=== PATIENT | female | born 1960 | race Caucasian/White ===

== ENCOUNTER 2023-05-21 01:53 | Inpatient (IN) | payer OTHER, MEDICAID ==
[2023-05-21] MEDS ORDERED: Ondansetron PF 4 MG/2 ML Vial IVP PRN (05:05)
[2023-05-21] MEDS ORDERED: Ondansetron ODT 4 MG TAB PO PRN (05:05)
[2023-05-21] MEDS ORDERED: Acetaminophen 650 MG Suppository PR PRN (05:05)
[2023-05-21] MEDS ORDERED: Acetaminophen 325 MG TAB PO PRN (05:05)
[2023-05-21] MEDS: Morphine 4 MG/ML VIAL SLOW IVP PRN ×2 (05:46→14:47)
[2023-05-21 06:17] LABS: #Eosinphils 0.1 thou/uL (0.0-0.7); #Neutrophils 4.2 thou/uL (1.40-6.50); %Basophils 0.4 % (0.0-1.0); %Eosinophils 1.1 % (0.0-10.0); %Lymphocytes 37.1 % (21.0-51.0); %Monocytes 11.6 % (0.0-10.0); %Neutrophils 49.7 % (42.0-75.0); Hematocrit 37.1 % (36.0-47.0); Hemoglobin 12.1 g/dL (12.0-16.0); Mean Corpuscular HGB CONC 32.6 g/dL (32.0-36.0); Mean Corpuscular Hemoglobin 30.5 pg (27.0-31.0); Mean Corpuscular Volume 93.5 fl (78.0-98.0); Mean Platelet Volume 10.2 fL (7.4-10.4); Platelet Count 222 10x3/uL (130-400); RBC Distribution Width 12.3 % (11.5-14.5); Red Blood Cell (RBC) Count 3.97 mill/uL (4.20-5.40); White Blood Cell (WBC) Count 8.4 10x3/uL (4.8-10.8)
[2023-05-21] MEDS ORDERED: Glucagon 1 MG/ML KIT IM PRN (06:20)
[2023-05-21] MEDS ORDERED: Dextrose 50% Abboject 50 ML SYRINGE SLOW IVP PRN (06:20)
[2023-05-21] MEDS ORDERED: Dextrose 5% in Water 1,000 ML IV PRN (06:20)
[2023-05-21] MEDS ORDERED: HumaLOG 300 UNITS/3 ML VIAL SC PRN ×2 (06:20)
[2023-05-21 06:36] VITALS: BMI 33.2
[2023-05-21 06:43] LABS: Troponin I Less than 0.010 ng/mL (< 0.028)
[2023-05-21 06:44] LABS: Anion Gap 15 mmol/L (10-20); BUN (Urea Nitrogen) 26 mg/dL (9.8-20.1); Calc. Creatinine Clearance 97 mL/min (70-130); Calcium 8.7 mg/dL (7.8-10.44); Carbon Dioxide 19 mmol/L (23-31); Chloride 104 mmol/L (98-107); Estimated GFR 66; Glucose 328 mg/dL (80-115); Potassium 3.7 mmol/L (3.5-5.1); Sodium 134 mmol/L (136-145)
[2023-05-21] MEDS ORDERED: Non-Formulary Item 1 EACH (Sotalol Hcl [Sotalol] 120 MG Tablet) PO SCH (09:00)
[2023-05-21] MEDS: Sotalol HCl 80 MG TAB PO SCH ×2 (09:04→20:34)
[2023-05-21 10:41] LABS: Magnesium 1.8 mg/dL (1.6-2.6)
[2023-05-21] MEDS ORDERED: Magnesium 2 GM/50 ML(in water) 2 GM in Premix Bag 1 BAG IVPB SCH (10:45)
[2023-05-21] MEDS ORDERED: Apixaban 5 MG TAB PO SCH ×2 (10:45→11:00)
[2023-05-21] MEDS ORDERED: Amlodipine 5 MG TAB PO SCH (11:00)
[2023-05-21] MEDS ORDERED: Doxycycline 100 MG CAP PO SCH ×2 (11:00)
[2023-05-21] MEDS ORDERED: Electrolyte Replacement Protocol 1 EACH FS SCH (11:00)
[2023-05-21] MEDS: Doxycycline 100 MG CAP PO SCH ×2 (11:41→20:33)
[2023-05-21] MEDS: HumaLOG 300 UNITS/3 ML VIAL SC PRN ×2 (11:42→18:56)
[2023-05-21] MEDS: Polyethylene Glycol OPTH DROP 15 ML BOT EA EYE SCH ×3 (11:47→20:30)
[2023-05-21] MEDS ORDERED: [UNRECOGNIZED DRUG - OTHER] OP SCH (13:00)
[2023-05-21] MEDS ORDERED: PEG OP SCH (13:00)
[2023-05-21] MEDS ORDERED: PROPYLENE GLYCOL OP SCH (13:00)
[2023-05-21] MEDS: Apixaban 5 MG TAB PO SCH (20:28)
[2023-05-21] MEDS ORDERED: Insulin Glargine 30 UNITS/0.3 ML VIAL SC SCH (21:00)
[2023-05-21] MEDS ORDERED: Non-Formulary Item 1 EACH (Omeprazole [Omeprazole] 20 MG Tablet.Dr) PO SCH (21:00)
[2023-05-21] MEDS: prednisoLONE 1% Ophth Susp 5 ml Bottle EA EYE SCH (21:52)
[2023-05-22] MEDS: Insulin Glargine 30 UNITS/0.3 ML VIAL SC SCH ×2 (08:11→21:09)
[2023-05-22] MEDS: Sotalol HCl 80 MG TAB PO SCH ×2 (08:12→20:37)
[2023-05-22] MEDS: Polyethylene Glycol OPTH DROP 15 ML BOT EA EYE SCH ×3 (08:13→20:40)
[2023-05-22] MEDS: Apixaban 5 MG TAB PO SCH ×2 (08:13→20:37)
[2023-05-22] MEDS: prednisoLONE 1% Ophth Susp 5 ml Bottle EA EYE SCH ×3 (08:13→20:41)
[2023-05-22] MEDS: Lisinopril 20 MG TAB PO SCH (08:13)
[2023-05-22] MEDS: Amlodipine 5 MG TAB PO SCH (08:13)
[2023-05-22] MEDS: Atorvastatin Calcium 20 MG TAB PO SCH (08:13)
[2023-05-22] MEDS: Aspirin 81 mg Enteric Coated Tablet PO SCH (08:13)
[2023-05-22] MEDS: Nitroglycerin 0.4 MG TAB (25 Tab Bottle) SL PRN ×2 (08:23→08:28)
[2023-05-22] MEDS: HumaLOG 300 UNITS/3 ML VIAL SC PRN ×3 (08:49→18:23)
[2023-05-22] MEDS: Doxycycline 100 MG CAP PO SCH ×2 (10:20→23:04)
[2023-05-22] MEDS ORDERED: Morphine 2 MG/ML VIAL SLOW IVP PRN (10:31)
[2023-05-22 15:45] LABS: Troponin I Less than 0.010 ng/mL (< 0.028)
[2023-05-23] MEDS: Insulin Glargine 30 UNITS/0.3 ML VIAL SC SCH ×2 (09:35→09:40)
[2023-05-23] MEDS: prednisoLONE 1% Ophth Susp 5 ml Bottle EA EYE SCH ×3 (09:35→16:38)
[2023-05-23] MEDS: Polyethylene Glycol OPTH DROP 15 ML BOT EA EYE SCH (09:35)
[2023-05-23] MEDS: Amlodipine 5 MG TAB PO SCH (09:36)
[2023-05-23] MEDS: Aspirin 81 mg Enteric Coated Tablet PO SCH (09:36)
[2023-05-23] MEDS: Lisinopril 20 MG TAB PO SCH (09:36)
[2023-05-23] MEDS: Apixaban 5 MG TAB PO SCH (09:36)
[2023-05-23] MEDS: Atorvastatin Calcium 20 MG TAB PO SCH (09:36)
[2023-05-23] MEDS: Sotalol HCl 80 MG TAB PO SCH (09:36)
[2023-05-23] MEDS: Doxycycline 100 MG CAP PO SCH (10:22)
[2023-05-23] MEDS: HumaLOG 300 UNITS/3 ML VIAL SC PRN (14:13)
[2023-05-23 19:32] VITALS: BP 142/65; TEMP 98
[2023-05-23] MEDS ORDERED: Insulin Glargine 30 UNITS/0.3 ML VIAL SC SCH (21:00)
== END 2023-05-23 19:35 | disposition home or self-care (01) | DRG 880 ==
LOC: 2SW 04:51 → OBSVTOIN 05-23 12:43
PROVIDERS: ADMIT Student in an Organized Health Care Education/Training Program; ATTEND Internal Medicine
DX: F41.9 Anxiety disorder, unspecified (principal); I50.32 Chronic diastolic (congestive) heart failure; I48.0 Paroxysmal atrial fibrillation; E11.9 Type 2 diabetes mellitus without complications; E83.42 Hypomagnesemia; K21.9 Gastro-esophageal reflux disease without esophagitis; I25.10 Atherosclerotic heart disease of native coronary artery without angina pectoris; I11.0 Hypertensive heart disease with heart failure; E78.5 Hyperlipidemia, unspecified; Z91.013 Allergy to seafood; Z88.0 Allergy status to penicillin; Z88.1 Allergy status to other antibiotic agents; Z79.82 Long term (current) use of aspirin; Z79.899 Other long term (current) drug therapy; Z79.4 Long term (current) use of insulin; Z83.3 Family history of diabetes mellitus; Z98.49 Cataract extraction status, unspecified eye; Z90.49 Acquired absence of other specified parts of digestive tract; Z79.01 Long term (current) use of anticoagulants; E66.9 Obesity, unspecified; Z68.33 Body mass index [BMI] 33.0-33.9, adult
CPT/HCPCS: 36415; 36416; 80048; 83735; 84484; 85025; 96374; 96375; 96376; G0378; G0379; J1815; J2270; J2272; J2405; J3475

== ENCOUNTER 2023-06-09 11:35 | Emergency (ER) | payer OTHER, MEDICAID ==
[2023-06-09 12:10] LABS: #Eosinphils 0.1 thou/uL (0.0-0.7); #Monocytes 1.2 thou/uL (0.11-0.59); #Neutrophils 8.3 thou/uL (1.40-6.50); %Basophils 0.3 % (0.0-1.0); %Eosinophils 0.7 % (0.0-10.0); %Lymphocytes 20.6 % (21.0-51.0); %Monocytes 9.8 % (0.0-10.0); %Neutrophils 68.4 % (42.0-75.0); Hematocrit 38.5 % (36.0-47.0); Mean Corpuscular HGB CONC 33.8 g/dL (32.0-36.0); Mean Corpuscular Hemoglobin 30.4 pg (27.0-31.0); Mean Platelet Volume 10.1 fL (7.4-10.4); Platelet Count 289 10x3/uL (130-400); RBC Distribution Width 12.4 % (11.5-14.5); Red Blood Cell (RBC) Count 4.28 mill/uL (4.20-5.40); White Blood Cell (WBC) Count 12.2 10x3/uL (4.8-10.8)
[2023-06-09 12:35] LABS: ALT (SGPT) 15 U/L (8-55); AST (SGOT) 16 U/L (5-34); Albumin 3.9 g/dL (3.4-4.8); Alkaline Phosphatase 120 U/L (40-110); Anion Gap 19 mmol/L (10-20); BUN (Urea Nitrogen) 20 mg/dL (9.8-20.1); Bilirubin, Total 0.6 mg/dL (0.2-1.2); Calc. Creatinine Clearance 0 mL/min (70-130); Carbon Dioxide 24 mmol/L (23-31); Chloride 99 mmol/L (98-107); Estimated GFR 61; Glucose 179 mg/dL (80-115); Potassium 3.5 mmol/L (3.5-5.1); Protein, Total 6.9 g/dL (5.8-8.1); Sodium 138 mmol/L (136-145)
[2023-06-09] MEDS ORDERED: HYDROcodone/Acetaminophen 5/325 mg Tablet ONE ×2 (13:06→13:11)
== END 2023-06-09 13:28 | disposition home or self-care (01) ==
LOC: ERS 11:35
DX: L03.032 Cellulitis of left toe (principal); I10 Essential (primary) hypertension; E11.9 Type 2 diabetes mellitus without complications; K21.9 Gastro-esophageal reflux disease without esophagitis
CPT/HCPCS: 36415; 80053; 85025; 85652; 86140

== ENCOUNTER 2023-06-13 17:26 | Emergency (ER) | payer OTHER, MEDICAID ==
[2023-06-13] MEDS ORDERED: Ondansetron PF 4 MG/2 ML Vial ONE (18:06)
[2023-06-13 19:00] LABS: #Monocytes 0.7 thou/uL (0.11-0.59); #Neutrophils 8.1 thou/uL (1.40-6.50); %Basophils 0.1 % (0.0-1.0); %Lymphocytes 9.2 % (21.0-51.0); %Monocytes 6.8 % (0.0-10.0); %Neutrophils 83.6 % (42.0-75.0); Hematocrit 37.3 % (36.0-47.0); Hemoglobin 12.7 g/dL (12.0-16.0); Mean Corpuscular Hemoglobin 30.1 pg (27.0-31.0); Mean Corpuscular Volume 88.4 fl (78.0-98.0); Mean Platelet Volume 10.1 fL (7.4-10.4); Platelet Count 247 10x3/uL (130-400); RBC Distribution Width 11.9 % (11.5-14.5); Red Blood Cell (RBC) Count 4.22 mill/uL (4.20-5.40); White Blood Cell (WBC) Count 9.7 10x3/uL (4.8-10.8)
[2023-06-13 19:27] LABS: ALT (SGPT) 12 U/L (8-55); AST (SGOT) 13 U/L (5-34); Albumin 3.4 g/dL (3.4-4.8); Alkaline Phosphatase 103 U/L (40-110); Anion Gap 18 mmol/L (10-20); BUN (Urea Nitrogen) 22 mg/dL (9.8-20.1); Bilirubin, Total 0.9 mg/dL (0.2-1.2); Calc. Creatinine Clearance 0 mL/min (70-130); Carbon Dioxide 22 mmol/L (23-31); Chloride 96 mmol/L (98-107); Estimated GFR 53; Globulin 3.3 g/dL (2.4-3.5); Potassium 3.3 mmol/L (3.5-5.1); Protein, Total 6.7 g/dL (5.8-8.1); Sodium 133 mmol/L (136-145)
[2023-06-13 19:27] LABS: CRP (Inflammatory) 15.83 mg/dL (= or < 0.5); Magnesium 1.5 mg/dL (1.6-2.6)
[2023-06-13 19:43] LABS: SARS-CoV-2 NAA Rapid Test Not Detected (NotDetected)
[2023-06-13 19:45] LABS: Glucose 404 mg/dL (80-115)
[2023-06-13] MEDS ORDERED: Acetaminophen 500 MG TAB ONE (19:46)
[2023-06-13] MEDS ORDERED: VANCOMYCIN 2 GRAM/500 ML BAG 2 GM in Premix Bag 1 BAG IVPB SCH (20:00)
[2023-06-13] MEDS ORDERED: Potassium Chloride 20 MEQ/100 ML PREMIX BAG ONE (20:07)
[2023-06-13] MEDS ORDERED: Potassium Chloride 20 MEQ TAB ONE ×2 (20:07→20:08)
== END 2023-06-13 21:27 | disposition short-term general hospital (02) ==
LOC: ERS 17:26
DX: M86.172 Other acute osteomyelitis, left ankle and foot (principal); E87.6 Hypokalemia; E83.42 Hypomagnesemia; E11.65 Type 2 diabetes mellitus with hyperglycemia; K21.9 Gastro-esophageal reflux disease without esophagitis; I10 Essential (primary) hypertension; Z79.4 Long term (current) use of insulin; Z79.899 Other long term (current) drug therapy; Z79.01 Long term (current) use of anticoagulants; Z20.822 Contact with and (suspected) exposure to COVID-19
CPT/HCPCS: 73630; 80053; 83605; 83735; 85025; 85652; 86140; 87040; 87077; 87149 ×2; 87186; J3370; U0002; 36415; 96361; 96374; J2405; J3480

== ENCOUNTER 2024-03-27 05:33 | Emergency (ER) | payer OTHER, MEDICAID ==
[2024-03-27] MEDS ORDERED: Pantoprazole 40 MG VIAL ONE (06:09)
[2024-03-27] MEDS ORDERED: Ondansetron PF 4 MG/2 ML Vial ONE ×2 (06:09→07:40)
[2024-03-27 06:40] LABS: #Basophils 0.04 10x3/uL (0.0-0.2); %Basophils 0.5 % (0.0-1.0); %Eosinophils 1.7 % (0.0-10.0); %Lymphocytes 39.1 % (21.0-51.0); %Neutrophils 49.3 % (42.0-75.0); Hematocrit 38.7 % (36.0-47.0); Hemoglobin 13.5 g/dL (12.0-16.0); Mean Corpuscular HGB CONC 34.9 g/dL (32.0-36.0); Mean Corpuscular Hemoglobin 30.8 pg (27.0-31.0); Mean Corpuscular Volume 88.4 fL (78.0-98.0); Mean Platelet Volume 10.1 fL (7.4-10.4); Platelet Count 277 10x3/uL (130-400); RBC Distribution Width 12.6 % (11.5-14.5); Red Blood Cell (RBC) Count 4.38 mill/uL (4.20-5.40)
[2024-03-27 07:20] LABS: Troponin I Less than 0.010 ng/mL (< 0.028)
[2024-03-27 07:22] LABS: ALT (SGPT) 37 U/L (8-55); AST (SGOT) 26 U/L (5-34); Albumin 3.6 g/dL (3.4-4.8); Alkaline Phosphatase 142 U/L (40-110); Anion Gap 15 mmol/L (10-20); BUN (Urea Nitrogen) 30 mg/dL (9.8-20.1); Bilirubin, Total 0.7 mg/dL (0.2-1.2); Calc. Creatinine Clearance 0 mL/min (70-130); Carbon Dioxide 21 mmol/L (23-31); Chloride 106 mmol/L (98-107); Estimated GFR 68; Globulin 3.5 g/dL (2.4-3.5); Glucose 210 mg/dL (80-115); Lipase 13 U/L (8-78); Potassium 3.4 mmol/L (3.5-5.1); Protein, Total 7.1 g/dL (5.8-8.1); Sodium 139 mmol/L (136-145)
[2024-03-27 08:50] LABS: Bilirubin Negative (Negative); Blood, Urine Negative (Negative); CAUTI Indications for Culture Dysuria,urgency,freq; Clarity Turbid (Clear); Glucose, Urine (Dipstick) 300 mg/dL (Negative); Ketone, Urine Negative (Negative); Leukocyte 250 Leu/uL (Negative); Nitrite Negative (Negative); Protein, Urine (Dipstick) 50 mg/dL (Neg-Trace); RBC/HPF 0-3 HPF (0-3); Specific Gravity, Urine 1.014 (1.002-1.036); Triple Phosphate Crystal 1+ HPF (None Seen); Urobilinogen Normal mg/dL (Less than 2); pH, Urine 8.5 (5.0-9.0)
[2024-03-27] MEDS ORDERED: Iopamidol-370 76% 500 ML MDV (1 ML CHARGE) ONE (08:56)
[2024-03-27 08:59] LABS: Bacteria/HPF 4+ HPF (None Seen)
[2024-03-27 09:00] LABS: Urine Culture Reflex No No
[2024-03-27] MEDS ORDERED: Promethazine HCl 12.5 MG, Admixture Fee 1 EACH in Sodium Chloride 0.9% 50 ML IVPB SCH (09:00)
== END 2024-03-27 11:34 | disposition home or self-care (01) ==
LOC: ERS 05:33
DX: K63.89 Other specified diseases of intestine (principal); N12 Tubulo-interstitial nephritis, not specified as acute or chronic; I10 Essential (primary) hypertension; Z79.899 Other long term (current) drug therapy
CPT/HCPCS: 71045; 74177; 80053; 81001; 83690; 84484; 85025; 87077; 87086; 93005; 96374; 96375; 96376; 99285; C9113; J2405; J2550; Q9967; 36415; 87186

== ENCOUNTER 2024-04-01 13:15 | Inpatient (IN) | payer OTHER, MEDICAID ==
[2024-04-01 14:23] LABS: #Basophils 0.04 10x3/uL (0.0-0.2); %Basophils 0.3 % (0.0-1.0); %Eosinophils 0.7 % (0.0-10.0); %Lymphocytes 8.3 % (21.0-51.0); %Monocytes 11.3 % (0.0-10.0); %Neutrophils 78.8 % (42.0-75.0); Hematocrit 38.1 % (36.0-47.0); Hemoglobin 13.1 g/dL (12.0-16.0); Mean Corpuscular HGB CONC 34.4 g/dL (32.0-36.0); Mean Corpuscular Hemoglobin 30.3 pg (27.0-31.0); Mean Corpuscular Volume 88.2 fL (78.0-98.0); Mean Platelet Volume 10.3 fL (7.4-10.4); Platelet Count 273 10x3/uL (130-400); Red Blood Cell (RBC) Count 4.32 mill/uL (4.20-5.40)
[2024-04-01 14:41] LABS: Troponin I Less than 0.010 ng/mL (< 0.028)
[2024-04-01 14:42] LABS: ALT (SGPT) 26 U/L (8-55); AST (SGOT) 18 U/L (5-34); Albumin 3.6 g/dL (3.4-4.8); Alkaline Phosphatase 133 U/L (40-110); Anion Gap 15 mmol/L (10-20); BUN (Urea Nitrogen) 25 mg/dL (9.8-20.1); Bilirubin, Total 0.9 mg/dL (0.2-1.2); Calc. Creatinine Clearance 0 mL/min (70-130); Calcium 8.8 mg/dL (7.8-10.44); Carbon Dioxide 22 mmol/L (23-31); Chloride 108 mmol/L (98-107); Estimated GFR 52; Globulin 3.1 g/dL (2.4-3.5); Glucose 197 mg/dL (80-115); Lipase 23 U/L (8-78); Potassium 3.9 mmol/L (3.5-5.1); Protein, Total 6.7 g/dL (5.8-8.1); Sodium 141 mmol/L (136-145)
[2024-04-01] MEDS ORDERED: Metoclopramide HCl 10 MG (2 mL) VIAL ONE (14:48)
[2024-04-01] MEDS ORDERED: diphenhydrAMINE 50 MG/ML VIAL ONE (14:48)
[2024-04-01] MEDS ORDERED: Diazepam 10 MG/2 ML SYRINGE ONE (14:48)
[2024-04-01] MEDS ORDERED: Ondansetron PF 4 MG/2 ML Vial IVP PRN (16:25)
[2024-04-01] MEDS ORDERED: Acetaminophen 650 MG Suppository PR PRN (16:25)
[2024-04-01] MEDS ORDERED: Ondansetron ODT 4 MG TAB PO PRN (16:25)
[2024-04-01] MEDS ORDERED: Dextrose 50% Abboject 50 ML SYRINGE SLOW IVP PRN (16:29)
[2024-04-01] MEDS ORDERED: Dextrose 5% in Water 1,000 ML IV PRN (16:29)
[2024-04-01] MEDS ORDERED: Insulin Regular, Human 100 UNIT/ML 10 ML VIAL SC PRN (16:29)
[2024-04-01] MEDS ORDERED: Glucagon 1 MG/ML KIT IM PRN (16:29)
[2024-04-01 17:33] VITALS: BMI 32.8
[2024-04-01 17:37] LABS: Hemoglobin A1c 8.4 % (4.0-6.0)
[2024-04-01 19:19] LABS: Troponin I Less than 0.010 ng/mL (< 0.028)
[2024-04-01] MEDS: Famotidine 20 MG TAB PO SCH (21:02)
[2024-04-01] MEDS: Famotidine/PF 20 mg/2ml Vial SLOW IVP SCH (21:07)
[2024-04-01 22:50] LABS: Troponin I Less than 0.010 ng/mL (< 0.028)
[2024-04-02 06:04] LABS: #Basophils 0.03 10x3/uL (0.0-0.2); %Basophils 0.5 % (0.0-1.0); %Lymphocytes 41.5 % (21.0-51.0); %Neutrophils 45.8 % (42.0-75.0); Hematocrit 35.8 % (36.0-47.0); Hemoglobin 12.5 g/dL (12.0-16.0); Mean Corpuscular HGB CONC 34.9 g/dL (32.0-36.0); Mean Corpuscular Hemoglobin 31.2 pg (27.0-31.0); Mean Corpuscular Volume 89.3 fL (78.0-98.0); Mean Platelet Volume 10.1 fL (7.4-10.4); Platelet Count 230 10x3/uL (130-400); Red Blood Cell (RBC) Count 4.01 mill/uL (4.20-5.40)
[2024-04-02 06:17] LABS: Anion Gap 11 mmol/L (10-20); Calc. Creatinine Clearance 118 mL/min (70-130); Calcium 8.5 mg/dL (7.8-10.44); Carbon Dioxide 22 mmol/L (23-31); Chloride 111 mmol/L (98-107); Estimated GFR 85; Glucose 134 mg/dL (80-115); Potassium 3.4 mmol/L (3.5-5.1); Sodium 141 mmol/L (136-145)
[2024-04-02 06:30] LABS: BUN (Urea Nitrogen) 21 mg/dL (9.8-20.1)
[2024-04-02] MEDS: Potassium Chloride 20 MEQ TAB PO SCH (08:52)
[2024-04-02] MEDS: Pantoprazole DR 40 MG TAB PO SCH (08:52)
[2024-04-02] MEDS: Apixaban 5 MG TAB PO SCH (08:52)
[2024-04-02] MEDS: Amlodipine 5 MG TAB PO SCH (08:52)
[2024-04-02] MEDS: Isosorbide Mononitrate 30 MG ER.TAB PO SCH (08:52)
[2024-04-02] MEDS: Lisinopril 20 MG TAB PO SCH (08:53)
[2024-04-02] MEDS: Atorvastatin Calcium 20 MG TAB PO SCH (08:53)
[2024-04-02] MEDS: Insulin Glargine 30 UNITS/0.3 ML VIAL SC SCH (08:53)
[2024-04-02] MEDS: SYSTANE 0.3-0.4% EYE DROPS (30 ML) EA EYE SCH (09:11)
[2024-04-02] MEDS: Sotalol HCl 80 MG TAB PO SCH (12:03)
[2024-04-02] MEDS: Nitroglycerin 0.4 MG TAB (25 Tab Bottle) SL PRN (12:03)
[2024-04-02] MEDS: prednisoLONE 1% Ophth Susp 5 ml Bottle L EYE SCH (12:44)
[2024-04-03 06:14] LABS: #Basophils 0.03 10x3/uL (0.0-0.2); %Basophils 0.5 % (0.0-1.0); %Eosinophils 2.4 % (0.0-10.0); %Monocytes 8.7 % (0.0-10.0); %Neutrophils 49.1 % (42.0-75.0); Hematocrit 36.7 % (36.0-47.0); Hemoglobin 12.6 g/dL (12.0-16.0); Mean Corpuscular HGB CONC 34.3 g/dL (32.0-36.0); Mean Corpuscular Hemoglobin 30.9 pg (27.0-31.0); Mean Platelet Volume 10.1 fL (7.4-10.4); Platelet Count 241 10x3/uL (130-400); RBC Distribution Width 12.8 % (11.5-14.5); Red Blood Cell (RBC) Count 4.08 mill/uL (4.20-5.40)
[2024-04-03 06:31] LABS: Anion Gap 14 mmol/L (10-20); BUN (Urea Nitrogen) 20 mg/dL (9.8-20.1); Calc. Creatinine Clearance 107 mL/min (70-130); Calcium 8.7 mg/dL (7.8-10.44); Carbon Dioxide 22 mmol/L (23-31); Chloride 108 mmol/L (98-107); Estimated GFR 76; Glucose 264 mg/dL (80-115); Potassium 4.2 mmol/L (3.5-5.1); Sodium 140 mmol/L (136-145)
[2024-04-03] MEDS: Acetaminophen 325 MG TAB PO PRN (08:48)
[2024-04-03] MEDS: Insulin Glargine 30 UNITS/0.3 ML VIAL SC SCH (08:49)
[2024-04-03] MEDS ORDERED: Regadenoson 0.4 MG/5 ML SYRINGE ONE (13:20)
[2024-04-03] MEDS: Lactated Ringer's 1,000 ML IV SCH (13:41)
[2024-04-03] MEDS: Lactated Ringer's 250 ML IV SCH (13:41)
[2024-04-04 05:41] LABS: #Basophils Less than 0.03 10x3/uL (0.0-0.2); %Basophils 0.3 % (0.0-1.0); %Eosinophils 3.5 % (0.0-10.0); %Lymphocytes 37.1 % (21.0-51.0); %Monocytes 8.5 % (0.0-10.0); %Neutrophils 50.3 % (42.0-75.0); Hematocrit 36.2 % (36.0-47.0); Hemoglobin 12.4 g/dL (12.0-16.0); Mean Corpuscular HGB CONC 34.3 g/dL (32.0-36.0); Mean Corpuscular Hemoglobin 30.1 pg (27.0-31.0); Mean Corpuscular Volume 87.9 fL (78.0-98.0); Mean Platelet Volume 10.3 fL (7.4-10.4); Platelet Count 241 10x3/uL (130-400); RBC Distribution Width 12.8 % (11.5-14.5); Red Blood Cell (RBC) Count 4.12 mill/uL (4.20-5.40)
[2024-04-04 06:26] LABS: Anion Gap 13 mmol/L (10-20); BUN (Urea Nitrogen) 18 mg/dL (9.8-20.1); Calc. Creatinine Clearance 107 mL/min (70-130); Calcium 8.8 mg/dL (7.8-10.44); Carbon Dioxide 23 mmol/L (23-31); Chloride 106 mmol/L (98-107); Estimated GFR 76; Glucose 254 mg/dL (80-115); Sodium 138 mmol/L (136-145)
[2024-04-04] MEDS ORDERED: Regadenoson 0.4 MG/5 ML SYRINGE ONE (09:28)
[2024-04-04] MEDS: Insulin Regular, Human 100 UNIT/ML 10 ML VIAL SC PRN (12:28)
[2024-04-04] MEDS: Fioricet 325/50/40 mg Tablet PO PRN (15:31)
[2024-04-04] MEDS: Insulin Glargine 30 UNITS/0.3 ML VIAL SC SCH (21:04)
[2024-04-05 04:47] LABS: #Basophils 0.03 10x3/uL (0.0-0.2); %Basophils 0.5 % (0.0-1.0); %Eosinophils 2.8 % (0.0-10.0); %Lymphocytes 38.1 % (21.0-51.0); %Monocytes 8.8 % (0.0-10.0); %Neutrophils 49.6 % (42.0-75.0); Hematocrit 37.2 % (36.0-47.0); Hemoglobin 12.6 g/dL (12.0-16.0); Mean Corpuscular HGB CONC 33.9 g/dL (32.0-36.0); Mean Corpuscular Hemoglobin 30.4 pg (27.0-31.0); Mean Corpuscular Volume 89.6 fL (78.0-98.0); Mean Platelet Volume 10.4 fL (7.4-10.4); Platelet Count 254 10x3/uL (130-400); RBC Distribution Width 12.7 % (11.5-14.5); Red Blood Cell (RBC) Count 4.15 mill/uL (4.20-5.40)
[2024-04-05 05:15] LABS: Anion Gap 15 mmol/L (10-20); Calc. Creatinine Clearance 92 mL/min (70-130); Calcium 9.1 mg/dL (7.8-10.44); Carbon Dioxide 22 mmol/L (23-31); Chloride 106 mmol/L (98-107); Estimated GFR 63; Glucose 221 mg/dL (80-115); Potassium 3.8 mmol/L (3.5-5.1); Sodium 139 mmol/L (136-145)
[2024-04-05 05:26] LABS: BUN (Urea Nitrogen) 17 mg/dL (9.8-20.1)
[2024-04-05] MEDS: Nitroglycerin 0.4 MG TAB (25 Tab Bottle) SL PRN (14:30)
[2024-04-05] MEDS: Insulin Glargine 30 UNITS/0.3 ML VIAL SC SCH (21:02)
[2024-04-06 04:52] LABS: Anion Gap 14 mmol/L (10-20); BUN (Urea Nitrogen) 22 mg/dL (9.8-20.1); Calc. Creatinine Clearance 84 mL/min (70-130); Calcium 8.8 mg/dL (7.8-10.44); Carbon Dioxide 22 mmol/L (23-31); Chloride 103 mmol/L (98-107); Estimated GFR 57; Glucose 235 mg/dL (80-115); Potassium 3.8 mmol/L (3.5-5.1); Sodium 135 mmol/L (136-145)
[2024-04-06 06:11] LABS: #Basophils Less than 0.03 10x3/uL (0.0-0.2); %Basophils 0.3 % (0.0-1.0); %Lymphocytes 38.5 % (21.0-51.0); %Monocytes 8.7 % (0.0-10.0); %Neutrophils 50.2 % (42.0-75.0); Hematocrit 38.5 % (36.0-47.0); Hemoglobin 13.3 g/dL (12.0-16.0); Mean Corpuscular HGB CONC 34.5 g/dL (32.0-36.0); Mean Corpuscular Hemoglobin 30.8 pg (27.0-31.0); Mean Corpuscular Volume 89.1 fL (78.0-98.0); Mean Platelet Volume 10.5 fL (7.4-10.4); Platelet Count 250 10x3/uL (130-400); Red Blood Cell (RBC) Count 4.32 mill/uL (4.20-5.40)
[2024-04-06] MEDS: Amlodipine 10 MG TAB PO SCH (09:47)
[2024-04-06] MEDS: Insulin Glargine 30 UNITS/0.3 ML VIAL SC SCH (10:40)
[2024-04-06 11:59] VITALS: BP 157/73; TEMP 97.9
== END 2024-04-06 18:07 | disposition home or self-care (01) | DRG 313 ==
LOC: ERS 13:15 → 2SW 16:10 → OBSVTOIN 04-03 15:42
PROVIDERS: ADMIT Student in an Organized Health Care Education/Training Program; ATTEND Internal Medicine Critical Care Medicine
DX: R07.89 Other chest pain (principal); I50.32 Chronic diastolic (congestive) heart failure; I48.91 Unspecified atrial fibrillation; I11.0 Hypertensive heart disease with heart failure; I25.10 Atherosclerotic heart disease of native coronary artery without angina pectoris; F41.9 Anxiety disorder, unspecified; F32.A Depression, unspecified; E11.51 Type 2 diabetes mellitus with diabetic peripheral angiopathy without gangrene; Z88.2 Allergy status to sulfonamides; Z88.1 Allergy status to other antibiotic agents; Z88.0 Allergy status to penicillin; Z79.01 Long term (current) use of anticoagulants; Z79.899 Other long term (current) drug therapy; Z90.49 Acquired absence of other specified parts of digestive tract; Z98.890 Other specified postprocedural states
CPT/HCPCS: 36415; 36416; 70450; 71045; 78452; 80048; 80053; 83036; 83690; 83880; 84443; 84484; 85025; 93005; 93010; 94760; 96374; 96375; A9502; J1200; J1815; J2765; J2785; J3360; J7120; S0028

== ENCOUNTER 2024-04-10 10:15 | Inpatient (IN) | payer OTHER, MEDICAID ==
[2024-04-10] MEDS ORDERED: Nitroglycerin 2% Ointment 1 INCH/1 GM Packet ONE (10:49)
[2024-04-10 10:51] LABS: #Basophils 0.03 10x3/uL (0.0-0.2); %Basophils 0.2 % (0.0-1.0); %Eosinophils 0.6 % (0.0-10.0); %Lymphocytes 20.5 % (21.0-51.0); %Monocytes 8.4 % (0.0-10.0); %Neutrophils 70.1 % (42.0-75.0); Hematocrit 39.8 % (36.0-47.0); Hemoglobin 13.8 g/dL (12.0-16.0); Mean Corpuscular HGB CONC 34.7 g/dL (32.0-36.0); Mean Corpuscular Hemoglobin 30.6 pg (27.0-31.0); Mean Corpuscular Volume 88.2 fL (78.0-98.0); Mean Platelet Volume 10.4 fL (7.4-10.4); Platelet Count 285 10x3/uL (130-400); RBC Distribution Width 13.1 % (11.5-14.5); Red Blood Cell (RBC) Count 4.51 mill/uL (4.20-5.40)
[2024-04-10 11:04] LABS: ALT (SGPT) 20 U/L (8-55); AST (SGOT) 18 U/L (5-34); Albumin 3.8 g/dL (3.4-4.8); Alkaline Phosphatase 134 U/L (40-110); Anion Gap 14 mmol/L (10-20); BUN (Urea Nitrogen) 21 mg/dL (9.8-20.1); Bilirubin, Total 0.7 mg/dL (0.2-1.2); Calc. Creatinine Clearance 0 mL/min (70-130); Calcium 8.7 mg/dL (7.8-10.44); Carbon Dioxide 24 mmol/L (23-31); Chloride 105 mmol/L (98-107); Estimated GFR 56; Globulin 3.2 g/dL (2.4-3.5); Glucose 198 mg/dL (80-115); Lipase 11 U/L (8-78); Potassium 3.8 mmol/L (3.5-5.1); Sodium 139 mmol/L (136-145)
[2024-04-10 11:35] LABS: Troponin I Less than 0.010 ng/mL (< 0.028)
[2024-04-10] MEDS ORDERED: Ondansetron ODT 4 MG TAB PO PRN (12:53)
[2024-04-10] MEDS ORDERED: Acetaminophen 325 MG TAB PO PRN (12:53)
[2024-04-10] MEDS ORDERED: Ondansetron PF 4 MG/2 ML Vial IVP PRN (12:53)
[2024-04-10] MEDS ORDERED: Acetaminophen 650 MG Suppository PR PRN (12:53)
[2024-04-10] MEDS ORDERED: Dextrose 50% Abboject 50 ML SYRINGE SLOW IVP PRN (13:53)
[2024-04-10] MEDS ORDERED: HumaLOG 300 UNITS/3 ML VIAL SC PRN (13:53)
[2024-04-10] MEDS ORDERED: Glucagon 1 MG/ML KIT IM PRN (13:53)
[2024-04-10] MEDS ORDERED: Dextrose 5% in Water 1,000 ML IV PRN (13:53)
[2024-04-10 17:52] LABS: Troponin I Less than 0.010 ng/mL (< 0.028)
[2024-04-10 20:31] VITALS: BMI 29.5
[2024-04-10] MEDS ORDERED: Enoxaparin 100 MG (1 mL) SYRINGE SC SCH (21:00)
[2024-04-10 21:17] LABS: Troponin I Less than 0.010 ng/mL (< 0.028)
[2024-04-10] MEDS: Sotalol HCl 80 MG TAB PO SCH (21:40)
[2024-04-10] MEDS: Enoxaparin 100 MG (1 mL) SYRINGE SC SCH (21:40)
[2024-04-10] MEDS: Famotidine 20 MG TAB PO SCH (21:40)
[2024-04-10] MEDS: Insulin Glargine 30 UNITS/0.3 ML VIAL SC SCH (21:40)
[2024-04-10] MEDS: Atorvastatin Calcium 20 MG TAB PO SCH (21:41)
[2024-04-11] MEDS ORDERED: Enoxaparin 100 MG (1 mL) SYRINGE SC SCH (03:00)
[2024-04-11 04:44] LABS: #Basophils Less than 0.03 10x3/uL (0.0-0.2); %Basophils 0.2 % (0.0-1.0); %Eosinophils 1.2 % (0.0-10.0); %Lymphocytes 29.6 % (21.0-51.0); %Monocytes 11.3 % (0.0-10.0); %Neutrophils 57.5 % (42.0-75.0); Hematocrit 35.8 % (36.0-47.0); Hemoglobin 12.2 g/dL (12.0-16.0); Mean Corpuscular HGB CONC 34.1 g/dL (32.0-36.0); Mean Corpuscular Hemoglobin 30.3 pg (27.0-31.0); Mean Corpuscular Volume 89.1 fL (78.0-98.0); Mean Platelet Volume 10.6 fL (7.4-10.4); Platelet Count 212 10x3/uL (130-400); RBC Distribution Width 13.1 % (11.5-14.5); Red Blood Cell (RBC) Count 4.02 mill/uL (4.20-5.40)
[2024-04-11 05:17] LABS: Anion Gap 15 mmol/L (10-20); BUN (Urea Nitrogen) 23 mg/dL (9.8-20.1); Calc. Creatinine Clearance 99 mL/min (70-130); Calcium 8.6 mg/dL (7.8-10.44); Carbon Dioxide 21 mmol/L (23-31); Chloride 106 mmol/L (98-107); Estimated GFR 79; Glucose 191 mg/dL (80-115); Potassium 3.6 mmol/L (3.5-5.1); Sodium 138 mmol/L (136-145)
[2024-04-11] MEDS: Enoxaparin 100 MG (1 mL) SYRINGE SC SCH (08:27)
[2024-04-11] MEDS: Lisinopril 2.5 MG TAB PO SCH (08:27)
[2024-04-11] MEDS: Amlodipine 10 MG TAB PO SCH (08:27)
[2024-04-11] MEDS: Pantoprazole DR 40 MG TAB PO SCH (08:27)
[2024-04-11] MEDS: Isosorbide Mononitrate 30 MG ER.TAB PO SCH (08:28)
[2024-04-11] MEDS ORDERED: Lisinopril 20 MG TAB PO SCH (09:00)
[2024-04-11] MEDS: prednisoLONE 1% Ophth Susp 5 ml Bottle EA EYE SCH (17:04)
[2024-04-11] MEDS ORDERED: Communication Order-Pharmacy FS SCH (17:15)
[2024-04-11] MEDS: cycloSPORINE 0.05% Ophthalmic Droperette EA EYE SCH (21:46)
[2024-04-12] MEDS: Nitroglycerin 0.4 MG TAB (25 Tab Bottle) ONE (14:09)
[2024-04-12 14:57] LABS: Troponin I Less than 0.010 ng/mL (< 0.028)
[2024-04-12] MEDS: diphenhydrAMINE 25 MG CAP PO SCH (15:44)
[2024-04-12] MEDS: predniSONE 20 MG TAB PO SCH (15:44)
[2024-04-12] MEDS: Sotalol HCl 80 MG TAB PO SCH (20:42)
[2024-04-13] MEDS: Sodium Chloride 0.9% 1,000 ML IV SCH (05:32)
[2024-04-13] MEDS ORDERED: Heparin 10,000 UNITS/ 10 ML VIAL ONE (06:28)
[2024-04-13] MEDS ORDERED: Verapamil 5 MG/2 ML VIAL ONE (06:28)
[2024-04-13] MEDS ORDERED: Nitroglycerin 50 MG/250 ML BOT 0 ML ONE (06:28)
[2024-04-13] MEDS ORDERED: Midazolam HCl 2 mg/2 ml Vial ONE (07:09)
[2024-04-13] MEDS ORDERED: hydrALAZINE 20 MG/ML VIAL ONE (07:23)
[2024-04-13] MEDS ORDERED: Acetaminophen/Codeine 30-300mg Tablet PO PRN ×2 (08:24)
[2024-04-13] MEDS ORDERED: Sodium Chloride 0.9% 200 ML IV PRN (08:24)
[2024-04-13] MEDS ORDERED: Nitroglycerin 0.4 MG TAB (25 Tab Bottle) SL PRN (08:24)
[2024-04-13] MEDS: Ranolazine ER 500 MG TAB PO SCH (09:31)
[2024-04-13] MEDS ORDERED: Iopamidol 370 76% 100 ML VIAL ONE (10:07)
[2024-04-13] MEDS ORDERED: Dextrose 5% in Water 1,000 ML IV PRN (13:09)
[2024-04-13] MEDS ORDERED: HumaLOG 300 UNITS/3 ML VIAL SC PRN (13:09)
[2024-04-13] MEDS ORDERED: Dextrose 50% Abboject 50 ML SYRINGE SLOW IVP PRN (13:09)
[2024-04-13] MEDS ORDERED: Glucagon 1 MG/ML KIT IM PRN (13:09)
[2024-04-13] MEDS: Insulin Lispro 100 UNIT/ML 10 ML VIAL SC PRN (18:42)
[2024-04-14 11:19] VITALS: BP 125/61; TEMP 97.5
[2024-04-14] MEDS ORDERED: Apixaban 5 MG TAB PO SCH (21:00)
== END 2024-04-14 14:22 | disposition home or self-care (01) | DRG 287 ==
LOC: SUATTDRO 10:15 → ERS 10:15 → ERHOLD 12:15 → 2NO 19:14
PROVIDERS: ADMIT Family Medicine; ATTEND Family Medicine
PROC: 4A023N7 Measurement of Cardiac Sampling and Pressure, Left Heart, Percutaneous Approach (ICD-10-PCS; principal; 2024-04-13)
PROC: B2111ZZ Fluoroscopy of Multiple Coronary Arteries using Low Osmolar Contrast (ICD-10-PCS; 2024-04-13)
PROC: B2151ZZ Fluoroscopy of Left Heart using Low Osmolar Contrast (ICD-10-PCS; 2024-04-13)
DX: I25.110 Atherosclerotic heart disease of native coronary artery with unstable angina pectoris (principal); I24.9 Acute ischemic heart disease, unspecified; R07.89 Other chest pain; K21.9 Gastro-esophageal reflux disease without esophagitis; E11.9 Type 2 diabetes mellitus without complications; I10 Essential (primary) hypertension; Z88.0 Allergy status to penicillin; Z88.8 Allergy status to other drugs, medicaments and biological substances; Z79.899 Other long term (current) drug therapy; Z79.4 Long term (current) use of insulin; Z88.2 Allergy status to sulfonamides; Z90.49 Acquired absence of other specified parts of digestive tract; F41.9 Anxiety disorder, unspecified; I48.91 Unspecified atrial fibrillation; E66.01 Morbid (severe) obesity due to excess calories; Z68.30 Body mass index [BMI] 30.0-30.9, adult
CPT/HCPCS: 36415; 36416; 71045; 80048; 80053; 83690; 84484; 85025; 93005; 93010; 93458; 94760; 99152; 99153; C1769; J0360; J1644; J1650; J1815; J2250; J7050; J7512; Q9967

== ENCOUNTER 2024-07-07 18:22 | Emergency (ER) | payer MEDICARE, OTHER ==
[~2024-07-07 18:22] MED LIST: Iopamidol 370 76% 100 ML VIAL ONE
[2024-07-07] MEDS ORDERED: Metoclopramide HCl 10 MG (2 mL) VIAL ONE (19:27)
[2024-07-07] MEDS ORDERED: Famotidine/PF 20 mg/2ml Vial ONE (19:28)
[2024-07-07 19:29] LABS: #Basophils Less than 0.03 10x3/uL (0.0-0.2); %Basophils 0.2 % (0.0-1.0); %Eosinophils 0.6 % (0.0-10.0); %Lymphocytes 19.7 % (21.0-51.0); %Monocytes 6.2 % (0.0-10.0); %Neutrophils 72.8 % (42.0-75.0); Hematocrit 42.1 % (36.0-47.0); Hemoglobin 13.5 g/dL (12.0-16.0); Mean Corpuscular HGB CONC 32.1 g/dL (32.0-36.0); Mean Corpuscular Hemoglobin 28.6 pg (27.0-31.0); Mean Corpuscular Volume 89.2 fL (78.0-98.0); Mean Platelet Volume 9.9 fL (7.4-10.4); Platelet Count 310 10x3/uL (130-400); RBC Distribution Width 13.9 % (11.5-14.5); Red Blood Cell (RBC) Count 4.72 mill/uL (4.20-5.40)
[2024-07-07 19:43] LABS: ALT (SGPT) 18 U/L (8-55); AST (SGOT) 18 U/L (5-34); Albumin 3.2 g/dL (3.4-4.8); Alkaline Phosphatase 142 U/L (40-110); Anion Gap 17 mmol/L (10-20); BUN (Urea Nitrogen) 26 mg/dL (9.8-20.1); Bilirubin, Total 0.5 mg/dL (0.2-1.2); Calc. Creatinine Clearance 0 mL/min (70-130); Calcium 8.6 mg/dL (7.8-10.44); Carbon Dioxide 22 mmol/L (23-31); Chloride 105 mmol/L (98-107); Estimated GFR 48; Globulin 3.5 g/dL (2.4-3.5); Glucose 306 mg/dL (80-115); Lipase 10 U/L (8-78); Potassium 4.4 mmol/L (3.5-5.1); Protein, Total 6.7 g/dL (5.8-8.1); Sodium 140 mmol/L (136-145)
[2024-07-07 19:50] LABS: Troponin I Less than 0.010 ng/mL (< 0.028)
[2024-07-07] MEDS ORDERED: Dicyclomine 20 MG TAB ONE (23:15)
[2024-07-07] MEDS ORDERED: Ketorolac Tromethamine 30 MG (1 mL) VIAL ONE (23:15)
== END 2024-07-08 08:04 | disposition home or self-care (01) ==
LOC: ERS 18:22
DX: R11.2 Nausea with vomiting, unspecified (principal); I25.10 Atherosclerotic heart disease of native coronary artery without angina pectoris; R10.84 Generalized abdominal pain; N18.9 Chronic kidney disease, unspecified; E11.9 Type 2 diabetes mellitus without complications; I11.0 Hypertensive heart disease with heart failure; I50.9 Heart failure, unspecified; Z55.6 Problems related to health literacy; Z75.3 Unavailability and inaccessibility of health-care facilities
CPT/HCPCS: 74177; 80053; 83690; 84484; 85025; 93005; J1885; J2765; J3490; Q9967; 36415; 96374; 96375

== ENCOUNTER 2024-08-08 11:59 | Emergency (ER) | payer OTHER, MEDICARE ==
[2024-08-08 13:25] LABS: #Basophils 0.03 10x3/uL (0.0-0.2); %Basophils 0.3 % (0.0-1.0); %Eosinophils 1.2 % (0.0-10.0); %Lymphocytes 25.9 % (21.0-51.0); %Monocytes 8.5 % (0.0-10.0); %Neutrophils 63.8 % (42.0-75.0); Hematocrit 43.1 % (36.0-47.0); Mean Corpuscular HGB CONC 32.5 g/dL (32.0-36.0); Mean Corpuscular Hemoglobin 27.9 pg (27.0-31.0); Mean Platelet Volume 10.2 fL (7.4-10.4); Platelet Count 256 10x3/uL (130-400); RBC Distribution Width 14.8 % (11.5-14.5); Red Blood Cell (RBC) Count 5.01 mill/uL (4.20-5.40)
[2024-08-08 13:41] LABS: ALT (SGPT) 29 U/L (8-55); AST (SGOT) 22 U/L (5-34); Albumin 3.3 g/dL (3.4-4.8); Alkaline Phosphatase 137 U/L (40-110); Anion Gap 16 mmol/L (10-20); BUN (Urea Nitrogen) 29 mg/dL (9.8-20.1); Bilirubin, Total 0.6 mg/dL (0.2-1.2); Calc. Creatinine Clearance 0 mL/min (70-130); Calcium 8.8 mg/dL (7.8-10.44); Carbon Dioxide 23 mmol/L (23-31); Chloride 96 mmol/L (98-107); Estimated GFR 43; Globulin 3.7 g/dL (2.4-3.5); Glucose 468 mg/dL (80-115); Potassium 3.6 mmol/L (3.5-5.1); Sodium 131 mmol/L (136-145)
[2024-08-08 13:42] LABS: Troponin I Less than 0.010 ng/mL (< 0.028)
[2024-08-08] MEDS ORDERED: Insulin Regular, Human 100 UNIT/ML 10 ML VIAL ONE (14:35)
== END 2024-08-08 15:57 | disposition home or self-care (01) ==
LOC: ERS 11:59
DX: I95.1 Orthostatic hypotension (principal); E11.65 Type 2 diabetes mellitus with hyperglycemia; I11.0 Hypertensive heart disease with heart failure; I50.9 Heart failure, unspecified; H54.8 Legal blindness, as defined in USA; K21.9 Gastro-esophageal reflux disease without esophagitis; Z79.4 Long term (current) use of insulin; Z79.01 Long term (current) use of anticoagulants; Z79.899 Other long term (current) drug therapy
CPT/HCPCS: 36415; 80053; 83880; 84484; 85025; 93005; 96360; J1815